=== PATIENT | female | born 2000 | race Caucasian/White ===

== ENCOUNTER 2019-11-01 21:15 | Emergency (ER) | payer OTHER ==
--- OUTSIDE RECORDS SUMMARY | 2019-11-01 21:30 | XMS REPORT | Continuity of Care Document ---
:2000 External Reference #:[id number] Author Name Sonia Rachel MD Address [address] [place] [id number] Care Team Providers Name Role Phone Francisco Felder MD Care Team Information Safety Clothing And Equipment Developer [phone] Francisco Felder MD Care Team Information Safety Clothing And Equipment Developer [phone] Problems Description No Information Available Social History Type Date Description Comments Sex Unknown Tobacco Use Start: Unknown Patient has never smoked Smoking Status Reviewed: 09/29/19 Patient has never smoked Allergies, Adverse Reactions, Alerts Active Allergies Reaction Severity Comments Date Ibuprofen Hives 09/29/2019 Medications Active Medications SIG Qnty Indications Ordering Date Provider Esomeprazole Magnesium Take 1 capful 30caps Sonia 09/29/2019 20mg daily -- take MD Wilson Capsules DR 30-60 minutes before a meal Metformin HCL takes 1000 mg Unknown 500mg Tablets daily Apri 1 by mouth every Unknown 0.15-30mg-mcg Tablets day Spironolactone 1 by mouth every Unknown 50mg Tablets day Immunizations Description No Information Available Vital Signs Date Vital Result Comment 09/29/2019 3:05pm Height 70 inches 5'10" Weight 182.00 lb BP Systolic 131 mmHg BP Diastolic 96 mmHg Heart Rate 86 /min BMI (Body Mass Index) 26.1 kg/m2 Results Description No Information Available Procedures Description No Information Available Medical Devices Description No Information Available Encounters Description No Information Available Assessments Date Code Description Provider 09/29/2019 K21.9 Gastro-esophageal reflux disease without Sonia Cuevas MD esophagitis 09/29/2019 R10.13 Epigastric pain Sonia Rachel MD Plan of Treatment Future Appointment(s):10/24/2019 11:00 am - Sonia Rachel MD at [facility]09/29/2019 - Sonia Rachel MDK21.9 Gastro-esophageal reflux disease without [id number] Epigastric pain Functional Status Description No Information Available Mental Status Description No Information Available Referrals Description No Information Available
[2019-11-01 22:34] LABS: ABS Eosinophils 0.1 10^3/ul (0-0.6); ABS Lymphocytes 1.5 10^3/ul (1.0-4.8); ABS Neutrophils 11.1 10^3/ul (1.5-7.7); Eosinophil % 0.4 %; Hematocrit 38 % (35-47); Hemoglobin 12.8 g/dL (12.0-16.0); Lymphocyte % 11.1 %; Mean Corpuscular HGB Conc 34 g/dL (31-36); Mean Corpuscular Hemoglobin 29 pg (27-31); Mean Corpuscular Volume 86 fL (80-97); Mean Platelet Volume 8.2 fL (7.4-10.4); Platelet Count 319 10^3/uL (150-450); Red Blood Count 4.39 10^6 /uL (3.70-4.87); Red Cell Distribution Width 14 % (10-15); White Blood Count 13.7 10^3/uL (3.5-10.8)
[2019-11-01 22:52] LABS: ALT 15 U/L (7-52); AST 31 U/L (13-39); Albumin 4.5 g/dL (3.2-5.2); Albumin/Globulin Ratio 1.6 (1-3); Alkaline Phosphatase 72 U/L (34-104); Anion Gap 9 mmol/L (2-11); BUN/Creatinine Ratio 11.4 (8-20); Blood Urea Nitrogen 8 mg/dL (6-24); CO2 Carbon Dioxide 24 mmol/L (22-32); Calcium 9.5 mg/dL (8.6-10.3); Chloride 101 mmol/L (101-111); EGFR African American 127.8 (>60); EGFR Non-African American 105.6 (>60); Globulin 2.8 g/dL (2-4); Glucose 102 mg/dL (70-100); Potassium 4.6 mmol/L (3.5-5.0); Sodium 134 mmol/L (135-145); Total Protein 7.3 g/dL (6.4-8.9)
[2019-11-01 22:57] LABS: Urine Appearance Cloudy; Urine Bilirubin 1+ (Negative); Urine Blood 3+ (Negative); Urine Color Amber; Urine Glucose Negative (Negative); Urine Ketones Trace (Negative); Urine Nitrite Negative (Negative); Urine Protein 1+(30 mg/dL) (Negative); Urine Specific Gravity 1.029 (1.010-1.030); Urine Urobilinogen Negative (Negative)
[2019-11-01 22:59] LABS: HCG Pregnancy < 0.60 mIU/mL
[2019-11-01 22:59] LABS: Urine Bacteria 2+ (Absent); Urine Red Blood Cell 1+(3-5/hpf) (Absent); Urine Squamous Epithelial Cell Present (Absent); Urine White Blood Cell 3+(>20/hpf) (Absent)
[2019-11-01] MEDS ORDERED: Lidocaine 2% VISCOUS* 15 ML UDC PO ONE (23:04)
[2019-11-01] MEDS ORDERED: Al Hydrox/Mg Hydrox/Simet LIQ* 30 ML UDC PO ONE (23:05)
--- NOTE | 2019-11-01 23:08 | ED ---
Abdominal Pain/Female - HPI Summary HPI Summary: 19-year-old female with significant past medical history of polycystic ovarian syndrome and GERD presents to the emergency department today complaining of 8 out of 10 sudden onset upper abdominal pain which occurred approximately 4 hours ago with associated vomiting. Patient states at this time upon arrival to the emergency department she has 4 out of 10 abdominal pain. Patient states she has taken ibuprofen prior to arrival for alleviation of her symptoms. Patient denies heavy use of ibuprofen recently. Patient denies substantial alcohol use or recreational drug use. Patient denies blood per rectum or dark stools. Patient has never had ovarian torsion. Patient is otherwise well and denies fever, pain with urination, nausea, diarrhea. - History of Current Complaint Chief Complaint: EDAbdPain Stated Complaint: ABD PAIN, VOMITING Time Seen by Provider: 11/01/19 22:19 Hx Obtained From: Patient Onset/Duration: Sudden Onset Timing: Constant Severity Initially: Moderate Severity Currently: Moderate Pain Intensity: 8 Pain Scale Used: 0-10 Numeric Location: Diffuse Radiates: No Character: Cramping Alleviating Factor(s): Antacids Associated Signs and Symptoms: Positive: Vomiting. Negative: Fever, Cough, Back Pain, Constipation, Blood in Stool, Urinary Symptoms, Decreased Appetite, Vaginal Bleeding, Vaginal Discharge, Nausea, Diarrhea Allergies/Adverse Reactions: Allergies Allergy/AdvReac Type Severity Reaction Status Date / Time ibuprofen Allergy Severe hives, Verified 11/01/19 21:19 facial swelling Home Medications: Home Medications Esomeprazole Magnesium [Nexium 24Hr] 20 mg PO DAILY 10/17/19 [History Confirmed 10/24/19] Spironolactone TAB* [Aldactone TAB*] 50 mg PO DAILY 10/17/19 [History Confirmed 10/24/19] metFORMIN* [Glucophage 500 MG TAB *] 1,000 mg PO DAILY 10/17/19 [History Confirmed 10/24/19] Apri 28 Day 1 tab PO QPM 10/24/19 [History Confirmed 10/24/19] PMH/Surg Hx/FS Hx/Imm Hx Infectious Disease History: No Infectious Disease History: Denies: Traveled Outside the [place] in Last 30 Days - Social History Alcohol Use: Weekly Substance Use Type: Reports: None Smoking Status (MU): Never Smoked Tobacco Review of Systems Constitutional: Negative Eyes: Negative ENT: Negative Cardiovascular: Negative Respiratory: Negative Positive: Abdominal Pain, Vomiting. Negative: Diarrhea, Nausea Genitourinary: Negative Musculoskeletal: Negative Skin: Negative Neurological/Mental Status: Negative Psychological: Normal All Other Systems Reviewed And Are Negative: Yes Physical Exam - Summary Physical Exam Summary: Patient is in no acute distress. Inspection the abdomen reveals no ecchymosis or masses. Auscultation reveals normoactive bowel sounds. Palpation reveals pain with palpation in the lower abdomen. Abdomen is nonacute there is no guarding, rigidity, peritoneal signs. No pain at McBurney's point. Negative Rovsing, psoas sign. Triage Information Reviewed: Yes Vital Signs On Initial Exam: Initial Vitals Temp Pulse Resp BP Pulse Ox 97.9 F 89 15 143/96 100 11/01/19 21:18 11/01/19 21:18 11/01/19 21:18 11/01/19 21:18 11/01/19 21:18 Vital Signs Reviewed: Yes Appearance: Positive: Well-Appearing, No Pain Distress, Well-Nourished Skin: Positive: Warm, Skin Color Reflects Adequate Perfusion Eyes: Positive: EOMI, DAHLIA ENT: Positive: Hearing grossly normal Respiratory/Lung Sounds: Positive: Clear to Auscultation, Breath Sounds Present Cardiovascular: Positive: RRR, S1, S2 Abdomen Description: Positive: No Organomegaly, Soft. Negative: Distended, Guarding Bowel Sounds: Positive: Present Musculoskeletal: Positive: Strength/ROM Intact Neurological: Positive: Sensory/Motor Intact, Alert, Oriented to Person Place, Time, Normal Gait, Facial Symmetry, Speech Normal Psychiatric: Positive: Normal, Affect/Mood Appropriate AVPU Assessment: Alert Procedures - Sedation Patient Received Moderate/Deep Sedation with Procedure: No Diagnostics - Vital Signs Vital Signs Temp Pulse Resp BP Pulse Ox 11/01/19 21:18 97.9 F 89 15 143/96 100 - Laboratory Lab Results: Lab Results 11/01/19 11/01/19 11/01/19 Range/Units 22:29 22:29 22:40 WBC 13.7 H (3.5-10.8) 10^3/uL RBC 4.39 (3.70-4.87) 10^6 /uL Hgb 12.8 (12.0-16.0) g/dL Hct 38 (35-47) % MCV 86 (80-97) fL MCH 29 (27-31) pg MCHC 34 (31-36) g/dL RDW 14 (10-15) % Plt Count 319 (150-450) 10^3/uL MPV 8.2 (7.4-10.4) fL Neut % (Auto) 80.8 % Lymph % (Auto) 11.1 % [place] % (Auto) 7.5 % Eos % (Auto) 0.4 % Baso % (Auto) 0.2 % Absolute Neuts (auto) 11.1 H (1.5-7.7) 10^3/ul Absolute Lymphs (auto) 1.5 (1.0-4.8) 10^3/ul Absolute Monos (auto) 1.0 H (0-0.8) 10^3/ul Absolute Eos (auto) 0.1 (0-0.6) 10^3/ul Absolute Basos (auto) 0.0 (0-0.2) 10^3/ul Absolute Nucleated RBC 0.0 10^3/ul Nucleated RBC % 0.0 Sodium 134 L (135-145) mmol/L Potassium 4.6 (3.5-5.0) mmol/L Chloride 101 (101-111) mmol/L Carbon Dioxide 24 (22-32) mmol/L Anion Gap 9 (2-11) mmol/L BUN 8 (6-24) mg/dL Creatinine 0.70 (0.51-0.95) mg/dL Est GFR ( Amer) 127.8 (>60) Est GFR (Non-Af Amer) 105.6 (>60) BUN/Creatinine Ratio 11.4 (8-20) Glucose 102 H (70-100) mg/dL Calcium 9.5 (8.6-10.3) mg/dL Total Bilirubin 0.30 (0.2-1.0) mg/dL AST 31 (13-39) U/L ALT 15 (7-52) U/L Alkaline Phosphatase 72 (34-104) U/L C-Reactive Protein 7.00 (<8.01) mg/L Total Protein 7.3 (6.4-8.9) g/dL Albumin 4.5 (3.2-5.2) g/dL Globulin 2.8 (2-4) g/dL Albumin/Globulin Ratio 1.6 (1-3) Lipase 22 (11.0-82.0) U/L Beta HCG, Quant < 0.60 mIU/mL Urine Color Lisa Urine Appearance Cloudy Urine pH 5.0 (5-9) Ur Specific [place] 1.029 (1.010-1.030) Urine Protein 1+(30 mg/dl) A (Negative) Urine Ketones Trace A (Negative) Urine Blood 3+ A (Negative) Urine Nitrate Negative (Negative) Urine Bilirubin 1+ A (Negative) Urine Urobilinogen Negative (Negative) Ur Leukocyte Esterase 2+ A (Negative) Urine WBC (Auto) 3+(>20/hpf) A (Absent) Urine RBC (Auto) 1+(3-5/hpf) A (Absent) Ur Squamous Epith Cells Present A (Absent) Urine Bacteria 2+ A (Absent) Urine Glucose Negative (Negative) Result Diagrams: 11/01/19 22:29 11/01/19 22:29 Lab Statement: Any lab studies that have been ordered have been reviewed, and results considered in the medical decision making process. Abdominal Pain Fem Course/Dx - Course Course Of Treatment: Patient was evaluated in the emergency department today for , pain. Vitals noted and stable. Laboratory studies returned showing mild leukocytosis with a white blood cell count of 13.7 with left shift. All other laboratory studies returned unremarkable with no electrolyte abnormality or anemia. CT of the abdomen and pelvis with IV contrast was done which showed no evidence of acute pathology requiring intervention at this time. Patient discharged to outpatient follow-up for further evaluation of her symptoms. - Diagnoses Differential Diagnosis: Positive: Appendicitis, Ovarian Cyst, Other - Viral illness, bloating Provider Diagnoses: Abdominal pain Discharge ED - Sign-Out/Discharge Documenting (check all that apply): Patient Departure - Discharge Plan Condition: Stable Disposition: HOME Patient Education Materials: Abdominal Pain (ED) Referrals: [facility] [Outside] - 3 Days No Primary Care Phys,NOPCP [Primary Care Provider] - Additional Instructions: You were seen in the emergency department today for abdominal pain. There is no evidence that your symptoms are due to a life-threatening or infectious process requiring intervention at this time. Please follow up with your primary care provider or senior budget analyst in 3 days for further evaluation and management of your symptoms. Please return to the emergency department immediately if you develop any new or worsening symptoms. - Billing Disposition and Condition Condition: STABLE Disposition: Home
[2019-11-01] MEDS ORDERED: Iohexol 300* (CONTRAST) 10 ML SDV IV ONE (23:38)
[2019-11-02 01:09] VITALS: BP 123/78
== END 2019-11-02 01:08 | disposition home or self-care (01) ==
LOC: ED 21:15
DX: R10.10 Upper abdominal pain, unspecified (principal); R11.10 Vomiting, unspecified; Z88.6 Allergy status to analgesic agent; Z88.4 Allergy status to anesthetic agent
CPT/HCPCS: 36415; 74177; 80053; 81003; 81015; 83690; 84702; 85025; 86140; 87086; 99282; A9270-GY; Q9967